=== PATIENT | female | born 1955 | race African-American/Black ===

== ENCOUNTER 2021-01-04 21:45 | Emergency (ER) | payer BC, OTHER ==
--- OUTSIDE RECORDS SUMMARY | 2021-01-04 21:49 | XMS REPORT | Continuity of Care Document ---
:1955 Author Organization [facility] t Address [address] Pro[address] [place] [id number] Care Team Providers Name Role Phone Viviana COSTA Primary Care Physician Avni POND Attending Clinician Unavailable Regina Yung MA Attending Clinician Unavailable Dimas Reyes MD Attending Clinician Provider Attending Clinician Unavailable Doctor Unassigned, Name Attending Clinician Unavailable Lab, Fam Pob I Attending Clinician Unavailable Mike I&C TECHNICIAN Attending Clinician Latia I&C TECHNICIAN Attending Clinician Provider, Urgent Care Attending Clinician Unavailable Payers Payer Name Policy Type Policy Effective Date Expiration Date Sour ce Number HUMANA [id number] 2020 [facility] MEDICAREHUMANA HMO 00:00:00 Hospit al GOLD PLUS [id number]/-PresentHMO Problems Condition Condition Condition Status Onset Resolution Last Treating Co mments Source Name Details Category Date Date Treatment Clinician Date Primary Primary Disease Active [facility] osteoarthr osteoarthr 1-[facility]: Hospita left knee left knee 00 l Allergies, Adverse Reactions, Alerts This patient has no known allergies or adverse reactions. Family History Family Member Diagnosis Comments Start Date Stop Date Source Natural mother Blood Clots [facility] mother Cancer [facility] Natural sister Cancer [facility] Natural father Cancer [facility] Maternal grandmother Diabetes [facility] Social History Social Habit Start Date Stop Date Quantity Comments Source Tobacco use and 2020-11-12 2020-11-12 Never used [facility] exposure 00:00:00 00:00:00 Hospital Alcohol intake 2020-11-12 2020-11-12 Current drinker [facility] 00:00:00 00:00:00 of alcohol Hospital (finding) Sex Ass[birth year] [facility] 00:00:00 00:00:00 Hospital Smoking Status Start Date Stop Date Source Never smoker [facility] Hospit al Medications Ordered Filled Start Stop Current Ordering Indication Dosage Frequency Signature Comments Components Source Medication Medication Date Date Medication? Clinician (SIG) Name Name alendronate 2018-06 Yes 70mg Q7D Take 70 mg [facility] (FOSAMAX) 2-[address] 70 MG 00:00: once a Hospita tablet 00 week. l lisinopril- 2018-06 Yes 1{tbl} QD Take 1 Me thodi hydrochloro 2-[address] thiazide 00:00: mouth Hospita (PRINZIDE) 00 every l 20-25 mg morning. per tablet metoprolol 2018-06 Yes [facility] tartrate 2-16 st (LOPRESSOR) 00:00: Hospit a 50 mg 00 l tablet Vital Signs Vital Name Observation Time Observation Value Comments Source Body height 2020-11-12 19:08:00 170.2 cm [facility] Body weight 2020-11-12 19:08:00 70.308 kg [facility] BMI 2020-11-12 19:08:00 24.28 kg/m2 [facility] Procedures Procedure Date / Time Performing Clinician Source Performed XR KNEE 4+ VW LEFT 2020-11-12 19:15:28 Lisa Reyes [facility] RI ARTHROCENTESIS 2020-11-12 19:00:00 Lisa Reyes [facility] ASPIR&/INJ MAJOR JT/BURSA W/O US RI ARTHROCENTESIS 2020-03-20 18:40:00 Lisa Reyes [facility] ASPIR&/INJ MAJOR JT/BURSA W/O US Plan of Care Planned Activity Planned Date Details Comments Source Future Scheduled Test COVID-19 VACCINE (1) [facility] [code = COVID-19 VACCINE (1)] Future Scheduled Test Hepatitis C screening [facility] (procedure) [code = 367373040] Future Scheduled Test Screening for [facility] malignant neoplasm of cervix (procedure) [code = 097027836] Future Scheduled Test BREAST CANCER [facility] SCREENING [code = BREAST CANCER SCREENING] Future Scheduled Test COLONOSCOPY SCREENING [facility] [code = COLONOSCOPY SCREENING] Future Scheduled Test SHINGLES VACCINES [facility] (#1) [code = SHINGLES VACCINES (#1)] Future Scheduled Test 65+ PNEUMOCOCCAL [facility] VACCINE (1 of 1 - PPSV23) [code = 65+ PNEUMOCOCCAL VACCINE (1 of 1 - PPSV23)] Future Scheduled Test INFLUENZA VACCINE [facility] [code = INFLUENZA VACCINE] Future Appointment 2021-02-17 Lisa Reyes MD, [facility] 07:45:[address] [place] [address]; [address], [place] [id number] Future Appointment 2021-02-17 Lisa Reyes MD, [facility] 07:45:[address] [place] [address]; [address], [place] [address] Encounters Start End Encounter Admission Attending Care Care Encounter Source Date/Time Date/Time Type Type Clinicians Facility Department ID 2020-11-22 2020-11-22 Travel 1.2.840.1 [id number] [facility] 00:00:00 00:00:[address] 3.430.2.7 0.2.7.3.698 Ho spita .3.279691 084.8 l .8 2020-11-18 2020-11-18 Orders Holly, 1.2.840.1 [id number] [facility] 00:00:00 00:00:00 Only Luz [address]43.1.[address] 3.430.2.7 Hospit a .3.203139 l .8 2020-11-18 2020-11-18 Orders Dilshad, Brown 1.2.840.1 [id number] [facility] 00:00:00 00:00:00 Only Regina 17986.1.[address] 3.430.2.7 Hospit a .3.430392 l .8 2020-11-18 2020-11-18 Transcribe Reyes, 1.2.840.1 [id number] [facility] 00:00:00 00:00:00 Orders Lisa Cochran 78838.1.[address] 3.430.2.7 Hospit a .3.039573 l .8 2020-11-18 2020-11-18 Documentat Provider, 1.2.840.1 [id number] [facility] 00:00:00 00:00:00 ion Unknown 90231.1.[address] 3.430.2.7 Hospit a .3.878580 l .8 2020-11-12 2020-11-12 Office Reyes, 1.2.840.1 [id number] [facility] 13:53:47 14:52:52 Visit Lisa Cochran 16657.1.[address] 3.430.2.7 Hospit a .3.495962 l .8 2020-11-12 2020-11-12 Outpatient [facility] [id number] Elizabeth 00:00:00 00:00:[address] LISA [address] 2020-11-12 2020-11-12 Outpatient [facility] [id number] Elizabeth 00:00:00 00:00:[address] LISA [address] 2020-11-12 2020-11-12 Travel 1.2.840.1 [id number] [id number] [facility] 00:00:00 00:00:[address] 3.430.2.7 0.2.7.3.698 Ho spita .3.329048 084.8 l .8 2020-11-08 2020-11-08 Travel 1.2.840.1 1.2.413.034 [id number] [facility] 00:00:00 00:00:[address] 3.430.2.7 0.2.7.3.698 Ho spita .3.882146 084.8 l .8 2020-03-20 2020-03-20 Office Eric, 1.2.840.1 [id number] [facility] 13:23:33 13:55:22 Visit Lisa Cochran 49917.1.[address] 3.430.2.7 Hospit a .3.694967 l .8 2020-03-20 2020-03-20 Outpatient [facility] [id number] Elizabeth 00:00:00 00:00:00 LISA [address] 2020-03-20 2020-03-20 Travel 1.2.840.1 [id number] [id number] [facility] 00:00:00 00:00:[address] 3.430.2.7 0.2.7.3.698 Ho spita .3.486582 084.8 l .8 2020-03-15 2020-03-15 Orders Doctor KASIE 1.2.840.114 [id number] 00:00:00 00:00:00 Only Unassigned, SUSAN 350.1.13.10 [place] [facility] 4.2.7.2.686 [id number] 2020-03-14 2020-03-14 Laboratory Lab, [facility] 1.2.840.114 [id number] 09:54:39 10:14:39 Only Fam b I [facility] 350.1.13.10 Gabriela 4.2.7.2.686 Professio [id number] nal 044 Office Building One 2020-03-03 2020-03-03 [facility] 1.2.840.114 [id number] 20:28:00 22:25:00 Rome Ochoa 350.1.13.10 [place] 4.2.7.2.686 [place] [id number] 2020-03-01 2020-03-01 [facility] Latia [facility] 1.2.840.114 [id number] 11:46:58 23:59:00 Encounter Karol Ochoa 350.1.13.10 [place] 4.2.7.2.686 [place] [id number] 2020-03-01 2020-03-01 Urgent Provider, [facility] [id number] 11:21:09 14:47:28 [facility] 350.1.13.10 [facility] 4.2.7.2.686 [facility] [id number] nal 044 Office Building One Results Test Description Test Time Test Comments Results Result Sour e Comments Large Joint Lisa Reyes Met hodist Arthrocentesis: 8 11/12/2020 3:05 Hospital knee, L knee 19:00:00 PMLarge Joint Arthrocentesis: knee, L kneePerformed by: Lisa Reyes MDAuthorized by: Lisa Reyes MD Consent given by: PatientSite marked: the procedure site was marked Timeout: prior to procedure the correct patient, procedure, and site was verified Indications: Pain and joint swellingLocation: KneeSite: L kneePrep: patient was prepped and draped in usual sterile fashion Ultrasound guided?: No Needle size (left): 22 GLeft side approach: AnterolateralLeft side medications: 80 mg methylPREDNISolone acetate 40 mg/mL; 2 mL lidocaine 10 mg/mL (1 %); 2 mL bupivacaine HCl 0.5 % (5 mg/mL)Patient tolerance (left): Patient tolerated the procedure well with no immediate complications Large Joint 2020-03-07 Lisa Reyes Met hodist Arthrocentesis: 4 03/20/2020 spital knee, L knee 18:40:00 2:22 PMLarge Joint Arthrocentesis: knee, L kneeConsent given by: patientSite marked: site markedTimeout: Immediately prior to procedure a time out was called to verify the correct patient, procedure, equipment, sales support consultant and site/side marked as required Supporting DocumentationIndicatio ns: pain and joint swelling Procedure DetailsPreparation: Patient was prepped and draped in the usual sterile fashionUltrasound guided: noLocation: knee - L knee Left side:Needle size: 22 GApproach: anterolateralLeft knee medications administered: 80 mg methylPREDNISolone acetate 40 mg/mL; 2 mL bupivacaine 0.5 % (5 mg/mL); 2 mL lidocaine 10 mg/mL (1 %)Patient tolerance: patient tolerated the procedure well with no immediate complications
[2021-01-04] MEDS ORDERED: HYDROCODONE/APAP 5/325 MG TAB ONE (23:48)
[2021-01-04] MEDS ORDERED: ONDANSETRON 4 MG (ODT) TAB ONE (23:48)
--- NOTE | 2021-01-05 00:43 | EDPHYS ---
Physician Documentation [facility] Name: Tony Pierce Age: 65 yrs Sex: Female : 1955 Arrival Date: 01/04/2021 Time: 21:47 Bed 15 Private MD: ED Physician Nasir Hill HPI: 01/04 23:24 This 65 yrs old Black Female presents to ER via Ambulatory with complaints of Fall jmm Injury - Left shoulder, fingers numb. 23:24 Onset: The symptoms/episode began/occurred acutely, just prior to arrival. Associated jmm injuries: The patient sustained left shoulder. 65-year-old female that presents emerged part with complaints of left shoulder pain radiating down to her fingers. This occurred after a fall. Patient states she tripped on her dog. Patient denies head injury.. Historical: - Allergies: 23:29 PENICILLINS; bb - Immunization history: Last tetanus immunization: unknown. - Social history:: Smoking status: unknown. ROS: 23:24 Constitutional: Negative for fever, chills, and weight loss, Cardiovascular: Negative jmm for chest pain, palpitations, and edema, Respiratory: Negative for shortness of breath, cough, wheezing, and pleuritic chest pain. 23:24 MS/extremity: Positive for injury or acute deformity. 23:24 All other systems are negative. Exam: 23:24 Constitutional: This is a well developed, well nourished patient who is awake, alert, jmm and in no acute distress. Head/Face: atraumatic. Eyes: EOMI, no conjunctival erythema appreciated ENT: Moist Mucus Membranes Neck: Trachea midline, Supple Chest/axilla: Normal chest wall appearance and motion. Cardiovascular: Regular rate and rhythm. No edema appreciated Respiratory: Normal respirations, no respiratory distress appreciated Abdomen/GI: Non distended, soft Back: Normal ROM 23:24 Musculoskeletal/extremity: Left shoulder held in internal rotation, left elbow is flexed in a position of comfort, deformity appreciated at the left shoulder. 23:24 Skin: Appearance: Color: normal in color. 23:24 Psych: Behavior/mood is pleasant, cooperative. Vital Signs: 22:55 BP 161 / 93 RA Sitting (/reg); Pulse 92; Resp 18 S; Temp 97.8(TE); Pulse Ox 97% on R/A; ds4 Pain 10/10; 08/01 02:30 BP 143 / 79; Pulse 55; Resp 16 S; Temp 98.1(TE); Pulse Ox 97% on R/A; Pain 0/10; bb Sriram Coma Score: 01/04 23:15 Eye Response: spontaneous(4). Verbal Response: oriented(5). Motor Response: obeys bb commands(6). Total: 15. Trauma Score (Adult): 23:15 Eye Response: spontaneous(1); Verbal Response: oriented(1); Motor Response: obeys bb commands(2); Systolic BP: > 89 mm Hg(4); Respiratory Rate: 10 to 29 per min(4); Sriram Score: 15; Trauma Score: 12 MDM: 23:30 Patient medically screened. [facility] 01/05 00:40 Data reviewed: vital signs, nurses notes. Counseling: I had a detailed discussion with otilio the patient and/or guardian regarding: the historical points, exam findings, and any diagnostic results supporting the discharge/admit diagnosis, radiology results, the need for outpatient follow up, to return to the emergency department if symptoms worsen or persist or if there are any questions or concerns that arise at home. ED course: Pain was relieved after massage of the left trapezius and gentle traction was applied to the left elbow downward. Patient experienced immediate relief. No deformity was appreciated at this time. X-ray revealed normal proximal humeral alignment. Patient most likely suffered a anterior dislocation of the shoulder. Patient was advised to follow-up with orthopedics for reevaluation. Patient does deny chest pain, I do not currently suspect ACS at this time. Patient is otherwise given strict return precautions. Patient understood and agrees plan of care.. 01/04 23:23 Order name: XRAY Shoulder LEFT 2 view 01/04 23:24 Order name: XRAY Elbow LEFT 3 view 01/05 02:02 Order name: XRAY Hand LEFT 3 View 01/04 23:51 Order name: Sling; Complete Time: 01:52 [facility] Administered Medications: 01/04 23:28 Drug: HYDROcodone-acetaminophen 5 mg-325 mg 2 tabs {Note: RASS 0.} Route: PO; 01/05 00:30 Follow up: Response: No adverse reaction; Pain is decreased; RASS: Alert and Calm (0) 01/04 23:28 Drug: Ondansetron 4 mg Route: PO; bb 01/05 00:30 Follow up: Response: No adverse reaction bb 01/04 23:28 CANCELLED (Duplicate Order): HYDROcodone-acetaminophen 5 mg-325 mg 1 tabs PO once; RASS bb on ADMIN: Combtv4, Very Agttd3, Agttd2, Rstlss1, AlertClm0, Drwsy-1, Lt Sdtn-2, Mod Sdtn-3, Dp Sdtn-4, UnArsble-5 23:28 CANCELLED (Duplicate Order): Ondansetron 4 mg PO once bb Disposition Summary: 01/05/21 00:42 Discharge Ordered Location: Home [facility] Condition: Stable [facility] Diagnosis - Pain in left shoulder jmm - Fall on same level, unspecified [facility] Followup: [facility] - With: Billy Espinosa MD - When: 2 - 3 days - Reason: Recheck today's complaints, Continuance of care, Re-evaluation by your physician Discharge Instructions: - Discharge Summary Sheet [facility] - Shoulder Pain [facility] Forms: - Medication Reconciliation Form [facility] - Thank You Letter [facility] - Antibiotic Education [facility] - Prescription Opioid Use [facility] Addendum: 01/06/2021 06:45 Co-signature as Attending Physician, Nasir Hill MD I agree with the assessment and c kyle plan of care. Signatures: Dispatcher [employer] Nasir Carcamo MD MD cha Mickail, Joel, PA PA Ruthie Cotto RN RN bb Corrections: (The following items were deleted from the chart) 01/04 23:28 23:28 HYDROcodone-acetaminophen 5 mg-325 mg 1 tabs PO once; RASS on ADMIN: Combtv4, bb Very Agttd3, Agttd2, Rstlss1, AlertClm0, Drwsy-1, Lt Sdtn-2, Mod Sdtn-3, Dp Sdtn-4, UnArsble-5 ordered. bb 23: 23:28 Ondansetron 4 mg PO once ordered. bb : 23:28 HYDROcodone-acetaminophen 5 mg-325 mg 1 tabs PO once; RASS on ADMIN: Combtv4, bb Very Agttd3, Agttd2, Rstlss1, AlertClm0, Drwsy-1, Lt Sdtn-2, Mod Sdtn-3, Dp Sdtn-4, UnArsble-5 given. bb 23: 23:28 HYDROcodone-acetaminophen 5 mg-325 mg 1 tabs PO once; RASS on ADMIN: Combtv4, bb Very Agttd3, Agttd2, Rstlss1, AlertClm0, Drwsy-1, Lt Sdtn-2, Mod Sdtn-3, Dp Sdtn-4, UnArsble-5 ordered. bb : 23:16 Humerus Left+RAD.RAD.BRZ ordered. EDMS EDMS 23:16 Forearm Left+RAD.RAD.BRZ ordered. EDMS EDMS 23:16 Hand Left 3 View+RAD.RAD.BRZ ordered. EDMS EDMS
--- NOTE | 2021-01-05 00:43 | ER ---
Nurse's Notes [facility] Name: Tony Pierce Age: 65 yrs Sex: Female : 1955 Arrival Date: 01/04/2021 Time: 21:47 Bed 15 Private MD: Diagnosis: Pain in left shoulder;Fall on same level, unspecified Presentation: 01/04 23:13 Chief complaint: Patient states: she tripped and fell over dog bed injuring her left bb arm about 2 hours ago. Care prior to arrival: None. Mechanism of Injury: Fall from standing position. Trauma event details: Injury occurred in the [facility], Injury occurred: at home. Injury occurred: January 04, 2021. 23:13 Acuity: KEISHA 2 bb 23:13 Method Of Arrival: Ambulatory bb 23:29 Coronavirus screen: At this time, the client does not indicate any symptoms associated bb with coronavirus-19. Ebola Screen: No symptoms or risks identified at this time. Initial Sepsis Screen: Does the patient meet any 2 criteria? No. Patient's initial sepsis screen is negative. Does the patient have a suspected source of infection? No. Patient's initial sepsis screen is negative. Risk Assessment: Do you want to hurt yourself or someone else? Patient reports no desire to harm self or others. Onset of symptoms was January 04, 2021. Historical: - Allergies: 23:29 PENICILLINS; bb - Immunization history: Last tetanus immunization: unknown. - Social history:: Smoking status: unknown. Screenin:15 Abuse screen: Denies threats or abuse. Tuberculosis screening: No symptoms or risk bb factors identified. 01/05 03:00 Nutritional screening: No deficits noted. Fall Risk None identified. bb Primary Survey: 01/04 23:15 NO uncontrolled hemorrhage observed. A: The patient is alert. Airway: patent. bb Breathing/Chest: Respiratory pattern: regular. Circulation: Heart tones present. Disability Alert. Secondary Survey: 23:15 HEENT: No deficits noted. Gastrointestinal: No deficits noted. : No deficits noted. bb Musculoskeletal: Reports pain in left arm. Assessment: 23:13 General: Appears uncomfortable, Behavior is cooperative. Pain: Complains of pain in bb left arm Pain currently is 10 out of 10 on a pain scale. Neuro: Level of Consciousness is awake, alert, obeys commands, Oriented to person, place, time, situation. 01/05 01:45 Reassessment: Patient is alert, oriented x 3, equal unlabored respirations, skin bb warm/dry/pink. Patient states feeling better. 02:00 Reassessment: Dr Hill notified pt unable to move first two fingers on left hand new bb orders received. 03:00 Reassessment: Patient is alert, oriented x 3, equal unlabored respirations, skin bb warm/dry/pink. sling to left arm in place pt verbalized understanding of and agrees to plan of care discharge instructions given pt ambulated with steady gait to exit. Vital Signs: 01/04 22:55 BP 161 / 93 RA Sitting (/reg); Pulse 92; Resp 18 S; Temp 97.8(TE); Pulse Ox 97% on R/A; ds4 Pain 10/10; 01/05 02:30 BP 143 / 79; Pulse 55; Resp 16 S; Temp 98.1(TE); Pulse Ox 97% on R/A; Pain 0/10; bb Sriram Coma Score: 01/04 23:15 Eye Response: spontaneous(4). Verbal Response: oriented(5). Motor Response: obeys bb commands(6). Total: 15. Trauma Score (Adult): 23:15 Eye Response: spontaneous(1); Verbal Response: oriented(1); Motor Response: obeys bb commands(2); Systolic BP: > 89 mm Hg(4); Respiratory Rate: 10 to 29 per min(4); [place] Score: 15; Trauma Score: 12 ED Course: 21:47 Patient arrived in ED. wm 23:14 Triage completed. bb 23:15 Patient has correct armband on for positive identification. bb 23:15 Patient maintains SpO2 saturation greater than 95% on room air. bb 23:25 Kenan Mcclain PA is PHCP. jmm 23:25 Nasir Hill MD is Attending Physician. jmm 23:29 Arm band placed on. X-ray ordered. bb 23:46 XRAY Shoulder LEFT 2 view In Process Unspecified. EDMS 23:46 XRAY Elbow LEFT 3 view In Process Unspecified. EDMS 01/05 00:42 Billy Espinosa MD is Referral Physician. [facility] 01:53 Ruthie Grullon, RN is Primary Nurse. bb 02:49 XRAY Hand LEFT 3 View In Process Unspecified. EDMS 03:00 No provider procedures requiring assistance completed. Patient did not have IV access bb during this emergency room visit. Administered Medications: 01/04 23:28 Drug: HYDROcodone-acetaminophen 5 mg-325 mg 2 tabs {Note: RASS 0.} Route: PO; bb 01/05 00:30 Follow up: Response: No adverse reaction; Pain is decreased; RASS: Alert and Calm (0) bb 01/04 23:28 Drug: Ondansetron 4 mg Route: PO; bb 01/05 00:30 Follow up: Response: No adverse reaction bb 01/04 23:28 CANCELLED (Duplicate Order): HYDROcodone-acetaminophen 5 mg-325 mg 1 tabs PO once; RASS bb on ADMIN: Combtv4, Very Agttd3, Agttd2, Rstlss1, AlertClm0, Drwsy-1, Lt Sdtn-2, Mod Sdtn-3, Dp Sdtn-4, UnArsble-5 23:28 CANCELLED (Duplicate Order): Ondansetron 4 mg PO once bb Intake: 23:15 PO: 0ml; Total: 0ml. bb Outcome: 01/05 00:42 Discharge ordered by . otilio 03:00 Discharged to home ambulatory, with family. bb 03:00 Condition: stable 03:00 Discharge instructions given to patient, Instructed on discharge instructions, follow up and referral plans. Demonstrated understanding of instructions, follow-up care. 03:02 Patient left the ED. bb Signatures: Dispatcher [employer] EDWI Kenan Mcclain PA PA jmm Ballard, Brenda, RN RN bb Otto Saleem ds4 Rafaela Eddy Corrections: (The following items were deleted from the chart) 01/04 23:28 23:28 HYDROcodone-acetaminophen 5 mg-325 mg 1 tabs PO bb bb
[2021-01-05 03:08] VITALS: BP 161/93; TEMP 97.8; O2SAT 97
--- NOTE | 2021-01-05 09:45 | RAD REPORT ---
EXAM DESCRIPTION: RAD - Shoulder Left 2 View - 01/04/2021 11:46 pm CLINICAL HISTORY: PAIN COMPARISON: No comparisons FINDINGS: No acute fracture or dislocation seen.
--- NOTE | 2021-01-05 09:51 | RAD REPORT ---
EXAM DESCRIPTION: RAD - Elbow Left 3 View - 01/04/2021 11:46 pm CLINICAL HISTORY: PAIN COMPARISON: No comparisons FINDINGS: Mild soft tissue swelling is seen about the olecranon region. No acute fracture or disloca tion.
--- NOTE | 2021-01-05 10:07 | RAD REPORT ---
EXAM DESCRIPTION: RAD - Hand Left 3 View - 01/05/2021 2:49 am CLINICAL HISTORY: PAIN COMPARISON: No comparisons FINDINGS: Mild radiocarpal arthritic changes are present. No acute fracture or dislocation seen.
== END 2021-01-05 03:02 | disposition home or self-care (01) ==
LOC: ER 21:45
DX: M25.512 Pain in left shoulder (principal); W54.8XXA Other contact with dog, initial encounter
CPT/HCPCS: 99284